=== PATIENT | female | born 1990 | race Caucasian/White ===

== ENCOUNTER 2016-12-10 21:23 | Emergency (ER) | payer MEDICAID ==
[~2016-12-10] VITALS: Ht 170.2 cm; Wt 60.0 kg
[~2016-12-10 21:23] MED LIST: IBUP-1542 PO
[2016-12-10 22:20] VITALS: Ht 170.2 cm; Wt 60.0 kg
[2016-12-11] MEDS ORDERED: IBUP-1542 PO (00:49)
[2016-12-11] MEDS ORDERED: AMO500 PO (00:49)
[2016-12-11] MEDS ORDERED: IBUPROFEN 600 MG TAB PO ONE (01:00)
[2016-12-11] MEDS ORDERED: AMOXICILLIN 500 MG CAP PO ONE (01:00)
--- NOTE | 2016-12-11 01:31 | ERA ---
ER Documentation Chief Complaint Date/Time DATE: 12/11/16 TIME: 01:29 Chief Complaint dental pain HPI The patient is a 26-year-old female, presenting with chronic dental pain, however the left upper molar is more painful today. She has not seen a dentist yet. She denies any trauma, fever, chills, neck pain, chest pain, dyspnea, abdominal pain, vomiting with dysuria. She smokes, denies drinking Past medical history: Asthma Past surgical history: Breast augmentation ROS All systems reviewed and are negative except as per history of present illness. Medications Home Meds Active Scripts Ibuprofen* (Motrin*) 600 Mg Tab, 600 MG PO Q6H Y for PAIN AND OR ELEVATED TEMP, #30 TAB Prov:YOVANY TAN MD 12/11/16 Amoxicillin* (Amoxicillin*) 500 Mg Cap, 500 MG PO TID for 10 Days, CAP Prov:YOVANY TAN MD 12/11/16 Ibuprofen* (Motrin*) 600 Mg Tab, 600 MG PO Q6, #20 TAB Prov:CHRISTIANO SCOTT MD 02/25/16 Allergies Allergies: Coded Allergies: No Known Drug Allergies (Verified Allergy, Unknown, 12/11/16) PMhx/Soc Medical and Surgical Hx: pt denies Surgical Hx History of Surgery: No Anesthesia Reaction: No Hx Neurological Disorder: No Hx Respiratory Disorders: Yes (ASTHMA) Hx Cardiac Disorders: No ( ) Hx Psychiatric Problems: No Hx Miscellaneous Medical Probl: No Hx Alcohol Use: No Hx Substance Use: No Hx Tobacco Use: Yes Smoking Status: Current every day smoker Physical Exam Vitals Vital Signs Date Time Temp Pulse Resp B/P Pulse Ox O2 Delivery O2 Flow Rate FiO2 12/10/16 22:20 98.2 109 20 130/71 97 Physical Exam Const: No acute distress. Head: Atraumatic. Eyes: Normal Conjunctiva. ENT: Normal External Ears, Nose and Mouth. Left upper molar is decayed with erythematous gum Neck: Full range of motion. No meningismus. Resp: Clear to auscultation bilaterally. Cardio: Regular rate and rhythm, no murmurs. Abd: Soft, non distended, normal bowel sounds, non tender. Skin: No petechiae or rashes. Back: No midline or flank tenderness. Ext: No cyanosis, or edema. Neur: Awake and alert. No focal deficit Psych: Normal Mood and Affect. Results 24 hrs Current Medications Medications (Trade) Dose Ordered Sig/Elizabeth Route PRN Reason Start Time Stop Time Status Last Admin Dose Admin Amoxicillin (Amoxicillin) 500 mg ONCE ONCE PO 12/11/16 01:00 12/11/16 01:01 DC 12/11/16 01:06 Ibuprofen (Motrin) 600 mg ONCE ONCE PO 12/11/16 01:00 12/11/16 01:01 DC 12/11/16 01:06 Procedures/[facility] MEDICAL MAKING DECISION: The patient is a 26-year-old female, presenting with acute dental pain. She was treated with amoxicillin Motrin Departure Diagnosis: Primary Impression: Pain, dental Condition: Good Patient Instructions: Dental Pain Referrals: [facility] YOU HAVE RECEIVED A MEDICAL SCREENING EXAM AND THE RESULTS INDICATE THAT YOU DO NOT HAVE A CONDITION THAT REQUIRES URGENT TREATMENT IN THE EMERGENCY DEPARTMENT. FURTHER EVALUATION AND TREATMENT OF YOUR CONDITION CAN WAIT UNTIL YOU ARE SEEN IN YOUR DOCTORS OFFICE WITHIN THE NEXT 1-2 DAYS. IT IS YOUR RESPONSIBILITY TO MAKE AN APPOINTMENT FOR FOLOW-UP CARE. IF YOU HAVE A PRIMARY DOCTOR --you should call your primary doctor and schedule an appointment IF YOU DO NOT HAVE A PRIMARY DOCTOR YOU CAN CALL OUR PHYSICIAN REFERRAL HOTLINE AT IF YOU CAN NOT AFFORD TO SEE A PHYSICIAN YOU CAN CHOSE FROM THE FOLLOWING [facility] [id number] [facility]. [facility] [address] [facility] [place] [address] [facility]. [facility] [address] [facility]. [facility] [address] [facility]. [facility]. [address] Additional Instructions: Call your Dentist TOMORROW for a SAME-DAY APPOINTMENT.Tell the tent finisher that you were referred from this facility.Call again if your condition worsens before your appointment time. She was discharged with amoxicillin YOVANY Melgar MD Dec 11, 2016 01:31
== END 2016-12-11 01:09 | disposition home or self-care (01) ==
LOC: FTE 21:23
DX: K08.89 Other specified disorders of teeth and supporting structures (principal); J45.909 Unspecified asthma, uncomplicated; F17.210 Nicotine dependence, cigarettes, uncomplicated
CPT/HCPCS: Z7502; Z7610; 99283